=== PATIENT | female | born 1945 | race Caucasian/White ===

== ENCOUNTER 2021-05-11 01:10 | Outpatient (CLI) | payer MEDICARE, SELFPAY ==
--- NOTE | 2021-05-11 08:45 | DI.NM_ITS ---
APPROVED REPORT Exam: Exercise Treadmill Patient Location: Out-Patient Room/Bed: Stress Nurse: Lynne Mccullough RN Ordering Provider:IVANIA MCMILLAN MD Contact Number: BMI: 27.46 Baseline Rhythm: Sinus Rhythm Comment: poor R wave progression, inverted T wave lead aVL. Indications: Chest pain on exertion Medical History Medical History: Hypothyroidism, HLD, HTN, ASCVD, GERD Cardiac Medications: Aspirin, Atorvastatin, Clopidogrel, Furosemide, Lisinopril, Metoprolol succinate , Nitroglycerin, Pantoprazole, Allergies: Codeine, fentanyl Cardiac Risk Factors: HTN, Hyperlipidemia, FHX of CAD, CVD Previous Cardiac Procedures: PCI w/ SABINA 2016, PCI w/o intervention 2018 Pretest Chest Pain Characteristics: No chest pain Exercise History: Physically active Physical Disabilities: None Lung Sounds: Clear to auscultation Heart Sounds: Regular Stress Test Details Test: Exercise stress testing was performed using a Juliano protocol. Nuclear Acquisition: Rest Tc-99m/Stress Tc-99m 1 day Rest Isotope: Tc-99m Sestamibi. Dose: 10.5 Date: 05/11/2021 Injection Time: 0845 Stress Isotope: Tc-99m Sestamibi. Dose: 32.0 Date: 05/11/2021 Injection Time: 1110 HR Resting HR Supine: 80 bpm Max Heart Rate (APMHR): 145.197383 bpm Resting HR Standin bpm Target HR (85% APMHR): 123.058929 bpm Max HR Achieved: 156 bpm % of APMHR: 107.59 Recovery HR: 99 bpm HR response to stress: Normal HR response to stress Comment: Metoprolol succinate held for > 24 hours. BP Resting BP Supine: 142/78 mmHg Resting BP Standin/78 mmHg Max BP: 168/88 mmHg Recovery BP: 142/78 mmHg BP response to stress: Normal blood pressure response to stress. ECG Resting ECG: Sinus Rhythm Ectopy: multifocal PVCs Comment: poor R wave progression, T wave inversion in lead aVL Stress ECG: Sinus Tachycardia ST Change: No significant ST segment changes noted Arrhythmia: multifocal PVCs Recovery ECG: Sinus Rhythm Recovery ST Change: No significant ST segment changes noted Recovery Arrhythmia: couplets, multiform PVCs, occasional PACs, fusion beats Clinical Reason for Termination: Fatigue Stress Symptoms: General Fatigue Exercise duration: 7 min24 sec Highest Stage Reached: Stage 3: 3.4 mph at 14% grade. Exercise capacity: 9.2 METs Cruz Treadmill Score: 6.3 Rate Pressure Product: 13061 Stress ECG Conclusion 1. The resting electrocardiogram showed an indeterminate age anterior wall myocardial infarction 2. Patient exercised on the Juliano protocol and completed a workload of 9.2 METS, limited by fatigue 3. Normal heart rate and blood pressure response to exercise. Patient achieved greater than 100% of predicted heart rate for age 4. Electrocardiographically there was no evidence of myocardial ischemia 5. Atrial and ventricular ectopy was noted Cruz Treadmill Score is 6.3 which is Low risk. Stress Test Summary STAGE Time (mins) Speed (mph) Grade (%) HR BP SYMPTOMS METS Supine 80 142/78 Standing 91 140/78 1 3 1.7 10 124 134/70 4.6 2 6 2.5 12 145 162/70 7 1 min recovery 140 158/72 3 min recovery 107 168/88 6 min recovery 99 142/78 MPI Conclusion Area of infarction involving anterior, apical inferoapical segments No ischemia EF 20% Radiologist Interpretation Radiologist agrees with Pipe Fitter Ammonia's Interpretation. Radiologist Interpretation by: Charly Martinez MD Interpretation Date/Time: 05/11/2021 16:18:05
== END 2021-05-11 01:30 ==
PROVIDERS: PCP Internal Medicine; Visit Provider Internal Medicine Interventional Cardiology
DX: R07.89 Other chest pain (principal); I10 Essential (primary) hypertension; E78.5 Hyperlipidemia, unspecified; Z82.49 Family history of ischemic heart disease and other diseases of the circulatory system; I25.10 Atherosclerotic heart disease of native coronary artery without angina pectoris; I49.1 Atrial premature depolarization; I49.3 Ventricular premature depolarization
CPT/HCPCS: 78452; 93016; 93018; 93017